=== PATIENT | male | born 1990 | race Caucasian/White ===

== ENCOUNTER 2024-05-07 16:48 | Emergency (ER) | payer OTHER ==
[2024-05-07 17:17] VITALS: TEMP 98.2
--- NOTE | 2024-05-07 17:53 | ED ---
Animal Bite HPI - General Chief Complaint: Animal Bite Stated Complaint: [facility]-Dog bite Time Seen by Provider: 05/07/24 17:08 Source: patient, RN notes reviewed Mode of arrival: ambulatory Limitations: no limitations - History of Present Illness Initial Comments: 34-year-old male presenting with dog bite to left thigh prior to arrival. 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 Patient was seen at urgent care prior to the emergency department where he received a tetanus vaccination and was prescribed antibiotics. Also states wound was thoroughly irrigated at this time. Animal control is aware of incident and dog will be quarantined for 10 days, however patient states he believes the dog is not vaccinated and would like to have rabies vaccine at this time. - Related Data Allergies Allergy/AdvReac Type Severity Reaction Status Date / Time No Known Allergies Allergy Verified 05/07/24 17:10 Review of Systems ROS Statement: Those systems with pertinent positive or pertinent negative responses have been documented in the HPI. ROS Other: All systems not noted in ROS Statement are negative. Past Medical History Past Medical History: No Reported History Past Surgical History: No Surgical Hx Reported Smoking Status: Never smoker Past Alcohol Use History: Occasional Past Drug Use History: None Reported General Exam Limitations: no limitations General appearance: alert, in no apparent distress Head exam: Present: atraumatic, normocephalic, normal inspection Left Hip exam: Present: normal inspection, full ROM. Absent: tenderness, swelling Upper Leg exam: Present: full ROM, tenderness, abrasion. Absent: normal inspection (Four vertical erythematous abrasions present on posterior left thigh with no active bleeding or lacerations), swelling, laceration, deformity Knee exam: Present: normal inspection, full ROM. Absent: tenderness, swelling Neurovascular tendon exam: Present: no vascular compromise. Absent: pulse deficit, abnormal cap refill, sensory deficit Neurological exam: Present: alert, oriented X3 Psychiatric exam: Present: normal affect, normal mood Skin exam: Present: warm, dry, intact, normal color. Absent: rash Course Vital Signs 05/07/24 17:10 Temperature 98.2 F Pulse Rate 72 Respiratory 20 Rate Blood Pressure 121/74 O2 Sat by Pulse 98 Oximetry Medical Decision Making - Medical Decision Making Was pt. sent in by a medical professional or institution (, PA, ORTHODONTIC ASSISTANT, urgent care, hospital, or group home...) When possible be specific @ -Sent by urgent care for rabies vaccination Did you speak to anyone other than the patient for history (EMS, parent, family, police, friend...)? What history was obtained from this source @ -No Did you review nursing and triage notes (agree or disagree)? Why? @ -I reviewed and agree with nursing and triage notes Were old charts reviewed (outside hosp., previous admission, EMS record, old EKG, old radiological studies, urgent care reports/EKG's, group home records)? Report findings @ -No old charts were reviewed Differential Diagnosis (chest pain, altered mental status, abdominal pain women, abdominal pain men, vaginal bleeding, weakness, fever, dyspnea, syncope, headache, dizziness, GI bleed, back pain, seizure, CVA, palpatations, mental health, musculoskeletal)? @ -Dog bite, rabies prophylaxis EKG interpreted by me (3pts min.). @ -None X-rays interpreted by me (1pt min.). @ -None done CT interpreted by me (1pt min.). @ -None done U/S interpreted by me (1pt. min.). @ -None done What testing was considered but not performed or refused? (CT, X-rays, U/S, labs)? Why? @ -None What meds were considered but not given or refused? Why? @ -None Did you discuss the management of the patient with other professionals (professionals i.e. , PA, ORTHODONTIC ASSISTANT, lab, RT, psych nurse, social contact worker, ict business analyst, teacher, sewage reticulation drafting officer, ed case manager)? Give summary @ -No Was smoking cessation discussed for >3mins.? @ -No Was critical care preformed (if so, how long)? @ -No Were there social determinants of health that impacted care today? How? (Homelessness, low income, unemployed, alcoholism, drug addiction, transportation, low edu. Level, literacy, decrease access to med. care, nursing home, rehab)? @ -No Was there de-escalation of care discussed even if they declined (Discuss DNR or withdrawal of care, Hospice)? DNR status @ -No What co-morbidities impacted this encounter? (DM, HTN, Smoking, COPD, CAD, Cancer, CVA, ARF, Chemo, Hep., AIDS, mental health diagnosis, sleep apnea, morbid obesity)? @ -None Was patient admitted / discharged? Hospital course, mention meds given and route, prescriptions, significant lab abnormalities, going to OR and other pertinent info. @ -Charge. This is a 34-year-old male presenting for dog bite left posterior thigh. Patient was seen at urgent care prior to this where he was provided with tetanus, irrigation of wound, and antibiotics. Patient is here for rabies vaccine. Rabies vaccine was administered as well as immunoglobulin. Patient was given a prescription to follow-up at [facility] for rabies vaccination on days 3, 7, and 14. Appropriate return parameters and supportive care discussed with patient and he is agreeable to plan. Case was discussed with my ED attending Dr. Whitaker. Undiagnosed new problem with uncertain prognosis? @ -No Drug Therapy requiring intensive monitoring for toxicity (Heparin, Nitro, Insulin, Cardizem)? @ -No Were any procedures done? @ -No Diagnosis/symptom? @ -Dog bite Acute, or Chronic, or Acute on Chronic? @ -Acute Uncomplicated (without systemic symptoms) or Complicated (systemic symptoms)? @ -Uncomplicated Side effects of treatment? @ -No Exacerbation, Progression, or Severe Exacerbation? @ -No Poses a threat to life or bodily function? How? (Chest pain, USA, MS, pneumonia, PE, COPD, DKA, ARF, appy, cholecystitis, CVA, Diverticulitis, Homicidal, Suicidal, threat to staff... and all critical care pts) @ -No Disposition Clinical Impression: Dog bite Disposition: HOME SELF-CARE Condition: Stable Instructions (If sedation given, give patient instructions): Animal Bite (ED) Additional Instructions: Take antibiotic that was prescribed to you. Follow-up at [facility] for rabies vaccine on days 3, 7, and 14. Please return to the Emergency Department if symptoms worsen or any other concerns. Is patient prescribed a controlled substance at d/c from ED?: No Referrals: None,Stated [Primary Care Provider] - 1-2 days Time of Disposition: 17:53
[2024-05-07] MEDS: RABIES VACCINE (PCEC) 2.5 UNIT KIT IM ONE (18:11)
[2024-05-07] MEDS: RABIES IMM GLOB 300 UNIT/2 ML VIAL IM ONE (18:13)
[2024-05-07 18:36] VITALS: BP 118/76; PULSE 71; RESP 18
== END 2024-05-07 18:36 | disposition home or self-care (01) ==
LOC: EC 16:48
DX: S71.152A Open bite, left thigh, initial encounter (principal); Z23 Encounter for immunization; W54.0XXA Bitten by dog, initial encounter
CPT/HCPCS: 90377; 90471; 90675; 96372; 99283